=== PATIENT | male | born 1975 | race American Indian/Alaskan Native ===

== ENCOUNTER 2017-08-12 20:05 | Emergency (ER) | payer OTHER ==
[2017-08-12 21:46] VITALS: BP 147/98
[2017-08-13] MEDS ORDERED: MOTRIN ONE (06:08)
== END 2017-08-13 06:10 ==
LOC: ED 20:05
DX: R07.9 Chest pain, unspecified (principal); M54.9 Dorsalgia, unspecified; Z53.21 Procedure and treatment not carried out due to patient leaving prior to being seen by health care provider; V87.7XXA Person injured in collision between other specified motor vehicles (traffic), initial encounter; Y93.89 Activity, other specified; Y99.8 Other external cause status; Y92.410 Unspecified street and highway as the place of occurrence of the external cause
CPT/HCPCS: 93005; 93010